=== PATIENT | male | born 1995 | race American Indian/Alaskan Native ===

== ENCOUNTER 2020-07-22 23:07 | Emergency (ER) | payer SELFPAY ==
--- NOTE | 2020-07-23 00:15 | Event Note ---
ED Screening Note Date of service: 07/23/20 Time: 00:08 ED Screening Note: 24-year-old -Mongolian male presents to the emergency room reporting that he is hearing voices and suicidal ideations. Patient states he had a plan to jump in front of a car. Patient states he has had a history of mental illness but never been on medication as his family did not approve of meds. Patient states he would like help and would like to be placed on medications to help make him feel better. Patient states he has had the symptoms for about a year but is gotten worse tonight. Patient states he recently relocated from [place] about 2 months ago. Patient is homeless. This initial assessment/diagnostic orders/clinical plan/treatment(s) is/are subject to change based on patients health status, clinical progression and re- assessment by fellow clinical providers in the ED. Further treatment and workup at subsequent clinical providers discretion. Patient/guardian urged not to elope from the ED as their condition may be serious if not clinically assessed and managed. Initial orders include:
--- NOTE | 2020-07-23 00:35 | Emergency Department Report ---
ED Psych HPI - General Chief Complaint: Psych Stated Complaint: SUICIDAL THOUGHTS Time Seen by Provider: 07/23/20 00:27 Source: patient Mode of arrival: Ambulatory - History of Present Illness Initial Comments: 24-year-old male with history of bipolar disorder presents to the ED with complaint of suicidal ideations and auditory hallucinations. Patient states he also has some associated paranoia, thinking that everyone is talking about him behind his back. Patient is not comfortable revealing what the voices are saying to him. Patient states his plan for suicide is to get drunk and jump in front of a car. Patient states previous psychotic episode was secondary to cocaine use, so his family was against him using medication to improve his symptoms. Therefore, patient has not been compliant with any psychiatric medications. Patient states he is no longer using cocaine, but still hearing voices. Patient reports suicide attempt last year when he tried to hang himself in a hotel room but was unsuccessful. MD Complaint: suicidal ideation -: unknown Associated Psychiatric Symptoms: suicidal ideation, auditory hallucinations History of same: Yes Quality: constant Improves With: none Worsens With: none Context: not taking psychiatric Associated Symptoms: denies other symptoms If Self Harm: has plan (Jump in front of traffic) - Related Data Home Medications Medication Instructions Recorded Confirmed Last Taken Bupropion HCl [Wellbutrin XL] 300 mg PO QAM 07/23/20 07/23/20 Unknown OLANZapine [Zyprexa] 15 mg PO DAILY 07/23/20 07/23/20 Unknown OXcarbazepine [Trileptal] 150 mg PO BID 07/23/20 07/23/20 Unknown Allergies Allergy/AdvReac Type Severity Reaction Status Date / Time No Known Allergies Allergy Unverified 07/23/20 00:08 ED Review of Systems ROS: Stated complaint: SUICIDAL THOUGHTS Other details as noted in HPI Comment: All other systems reviewed and negative Psychiatric: auditory hallucinations, suicidal thoughts. denies: visual hallucinations, homicidal thoughts ED Past Medical Hx - Past Medical History Hx Asthma: Yes - Surgical History Past Surgical History?: Yes Additional Surgical History: left acl surgery - Social History Smoking Status: Never Smoker Substance Use Type: Marijuana - Medications Home Medications: Home Medications Medication Instructions Recorded Confirmed Last Taken Type Bupropion HCl [Wellbutrin XL] 300 mg PO QAM 07/23/20 07/23/20 Unknown History OLANZapine [Zyprexa] 15 mg PO DAILY 07/23/20 07/23/20 Unknown History OXcarbazepine [Trileptal] 150 mg PO BID 07/23/20 07/23/20 Unknown History ED Physical Exam - General Limitations: No Limitations General appearance: alert, in no apparent distress - Head Head exam: Present: atraumatic, normocephalic - Eye Eye exam: Present: normal appearance, EOMI - ENT ENT exam: Present: mucous membranes moist - Neck Neck exam: Present: normal inspection - Respiratory Respiratory exam: Present: normal lung sounds bilaterally. Absent: respiratory distress - Cardiovascular Cardiovascular Exam: Present: regular rate, normal rhythm - GI/Abdominal GI/Abdominal exam: Absent: distended - Extremities Exam Extremities exam: Present: normal inspection - Neurological Exam Neurological exam: Present: alert, oriented X3 - Psychiatric Psychiatric exam: Present: suicidal ideation - Skin Skin exam: Present: warm, dry, intact, normal color ED Course Vital Signs 07/23/20 07/23/20 07/23/20 00:09 08:56 09:08 Temperature 98.1 F 97.9 F Pulse Rate 87 72 Respiratory 12 20 18 Rate Blood Pressure 108/66 115/63 [left arm] O2 Sat by Pulse 94 98 98 Oximetry 07/23/20 07/23/20 07/23/20 12:38 15:20 20:16 Temperature 97.5 F L 98.4 F Pulse Rate 71 76 73 Respiratory 18 18 16 Rate Blood Pressure 102/60 112/65 120/61 [left arm] O2 Sat by Pulse 97 100 99 Oximetry 07/24/20 07/24/20 08:34 16:50 Temperature 97.5 F L 97.4 F L Pulse Rate 53 L 83 Respiratory 18 18 Rate Blood Pressure 114/62 110/70 [left arm] O2 Sat by Pulse 99 99 Oximetry ED Medical Decision Making - Lab Data Result diagrams: 07/23/20 00:31 07/23/20 00:31 - Medical Decision Making 24-year-old male presents to ED with auditory hallucinations and suicidal ideations. Patient states his plan is to jump in front of a moving car in traffic. Patient has been placed on 1013. Vital signs are stable. Labs are unremarkable. Patient is medically clear for mental health evaluation. Will dispo per psych. Critical care attestation.: If time is entered above; I have spent that time in minutes in the direct care of this critically ill patient, excluding procedure time. ED Disposition Clinical Impression: Suicidal ideation, Acute psychosis Disposition: DC/TX-65 PSY HOSP/PSY UNIT Is pt being admited?: No Condition: Stable Referrals: PRIMARY CARE, [Primary Care Provider] - 3-5 Days
[2020-07-23 01:20] LABS: Basophils % (Auto) 0.6 % (0.0-1.8); Eosinophils # (Auto) 0.1 K/mm3 (0.0-0.4); Eosinophils % (Auto) 2.4 % (0.0-4.3); Hemoglobin 15.5 gm/dl (11.8-15.2); Lymphocytes # (Auto) 3.1 K/mm3 (1.2-5.4); Lymphocytes % (Auto) 53.3 % (13.4-35.0); Mean Corpuscular HGB Conc 34 % (32-34); Mean Corpuscular Volume 94 fl (84-94); Monocytes # (Auto) 0.4 K/mm3 (0.0-0.8); Monocytes % (Auto) 7.4 % (0.0-7.3); Platelet Count 281 K/mm3 (140-440); Red Blood Count 4.87 M/mm3 (3.65-5.03); Red Cell Distribution Width 12.8 % (13.2-15.2)
[2020-07-23 01:23] LABS: Amphetamine Screen,Urine PRESUMPTIVE NEGATIVE; Benzodiazepines Screen,Urine PRESUMPTIVE NEGATIVE; Cannabinoid Screen,Urine PRESUMPTIVE POSITIVE; Cocaine Screen,Urine PRESUMPTIVE NEGATIVE; Methadone Screen,Urine PRESUMPTIVE NEGATIVE; Opiate Screen,Urine PRESUMPTIVE NEGATIVE
[2020-07-23 01:24] LABS: Bilirubin,Urine NEG (Negative); Blood,Urine NEG (Negative); Color,Urine Yellow (Yellow); Mucus,Urine FEW /HPF; Protein,Urine <15 mg/dL mg/dL (Negative); Urobilinogen,Urine < 2.0 mg/dL (<2.0)
[2020-07-23 01:34] LABS: Alanine Aminotransferase 44 units/L (7-56); Albumin 4.7 g/dL (3.9-5); BUN/Creatinine Ratio 16; Blood Urea Nitrogen 18 mg/dL (9-20); Calcium 9.7 mg/dL (8.4-10.2); Hemolysis Index 8
[2020-07-23] MEDS ORDERED: NICOTINE 21 MG/24 HR PATCH TD ONE (07:15)
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
[2020-07-23] MEDS: OXcarbazepine 150 MG TAB PO SCH (13:28)
[2020-07-23] MEDS: VALPROIC ACID 250 MG CAP PO SCH ×2 (13:28→21:53)
[2020-07-24] MEDS ORDERED: NICOTINE 21 MG/24 HR PATCH TD ONE (11:26)
[2020-07-24] MEDS: OXcarbazepine 150 MG TAB PO SCH (11:37)
[2020-07-24] MEDS: VALPROIC ACID 250 MG CAP PO SCH (11:37)
[2020-07-24] MEDS ORDERED: buPROPion XL 150 MG TAB PO SCH (12:00)
[2020-07-24 16:50] VITALS: BP 110/70
[2020-07-25] MEDS ORDERED: NON-FORMULARY EACH (Bupropion Hcl [Wellbutrin Xl] 300 MG Tab.Er.24h) PO SCH (10:00)
== END 2020-07-24 17:23 ==
LOC: ED 23:07
DX: F23 Brief psychotic disorder (principal); J45.909 Unspecified asthma, uncomplicated; F12.10 Cannabis abuse, uncomplicated; Z79.899 Other long term (current) drug therapy; Z20.822 Contact with and (suspected) exposure to COVID-19
CPT/HCPCS: 36415; 80053; 80307; 81001; 85025; 99285; U0003; 80320; G0480

== ENCOUNTER 2020-07-31 03:26 | Emergency (ER) | payer SELFPAY ==
[2020-07-31] MEDS ORDERED: SODIUM CHLORIDE 0.9% 1000 ML 1,000 ML IV ONE (08:05)
[2020-07-31] MEDS ORDERED: diphenhydrAMINE 50 MG/ML VIAL IV STA (08:05)
[2020-07-31] MEDS ORDERED: METOCLOPRAMIDE 10 MG/2 ML INJ IV STA (08:05)
[2020-07-31] MEDS ORDERED: ONDANSETRON 4 MG/2 ML INJ IV STA (08:05)
[2020-07-31] MEDS ORDERED: KETOROLAC 30 MG/1 ML INJ IV STA (08:05)
--- NOTE | 2020-07-31 08:12 | Emergency Department Report ---
ED Headache HPI - General Chief Complaint: Headache Stated Complaint: WEAKNESS Time Seen by Provider: 07/31/20 07:59 Source: patient Exam Limitations: no limitations - History of Present Illness Initial Comments: 24-year-old -Faroese male that emerge department complaining of a couple day history of progressively worsening dull throbbing headache associated with nausea, vomiting and also occasional blurred vision and presyncope. States that the headache started on each side and began to take a more global affect now with more dull and throbbing. Has not tried any [id number] treatments but did note that he was started some Wellbutrin prior to the symptoms beginning. He was prescribed medication about a week ago and reports has been having the symptoms that has been worsening since the onset. He also has been experiencing some vague abdominal pain centrally located associated with diarrhea and pain as well. Feels like he is dehydrated due to the excessive vomiting and and diarrhea. Reports no chest pain, no palpitations, no fever but has had chills and sweats. He was tested for Covid 1 week ago and states it was negative. Reports no known sick contacts since that time. Timing/Duration: increasing Quality: moderate Recent Head Trauma: occasional headaches Modifying Factors: improves with: medication (Wellbutrin may worsen symptoms) Associated Symptoms: vision changes. denies: facial pain, flushing, nasal drainage, numbness in legs/feet, seizures, sinus infection Allergies/Adverse Reactions: Allergies No Known Allergies Allergy (Unverified 07/23/20 00:08) Home Medications: Ambulatory Orders Bupropion HCl [Wellbutrin XL] 300 mg PO QAM 07/23/20 OLANZapine [Zyprexa] 15 mg PO DAILY 07/23/20 OXcarbazepine [Trileptal] 150 mg PO BID 07/23/20 Butalb/Acetaminophen/Caffeine [Fioricet 50-300-40 mg CAP] 1 cap PO Q6HR PRN #10 cap 07/31/20 Ondansetron [Zofran Odt] 4 mg PO Q8HR #14 tab.rapdis 07/31/20 ED Review of Systems ROS: Stated complaint: WEAKNESS Other details as noted in HPI Constitutional: denies: chills, fever Eyes: denies: eye pain, eye discharge, vision change ENT: denies: ear pain, throat pain Respiratory: denies: cough, shortness of breath, wheezing Cardiovascular: denies: chest pain, palpitations Endocrine: no symptoms reported Gastrointestinal: abdominal pain, nausea, vomiting, diarrhea Genitourinary: denies: urgency, dysuria Musculoskeletal: denies: back pain, joint swelling, arthralgia Skin: denies: rash, lesions Neurological: denies: headache, weakness, paresthesias Psychiatric: denies: anxiety, depression Hematological/Lymphatic: denies: easy bleeding, easy bruising ED Past Medical Hx - Past Medical History Previous Medical History?: Yes Hx Psychiatric Treatment: Yes (PTSD, Anxiety Bipolar) Hx Asthma: Yes - Surgical History Past Surgical History?: Yes Additional Surgical History: left acl surgery - Social History Smoking Status: Current Every Day Smoker Substance Use Type: Marijuana - Medications Home Medications: Home Medications Medication Instructions Recorded Confirmed Last Taken Type Bupropion HCl [Wellbutrin XL] 300 mg PO QAM 07/23/20 07/23/20 Unknown History OLANZapine [Zyprexa] 15 mg PO DAILY 07/23/20 07/23/20 Unknown History OXcarbazepine [Trileptal] 150 mg PO BID 07/23/20 07/23/20 Unknown History Butalb/Acetaminophen/Caffeine 1 cap PO Q6HR PRN #10 cap 07/31/20 Unknown Rx [Fioricet 50-300-40 mg CAP] Ondansetron [Zofran Odt] 4 mg PO Q8HR #14 tab.rapdis 07/31/20 Unknown Rx ED Physical Exam - General Limitations: No Limitations General appearance: alert, in no apparent distress - Head Head exam: Present: atraumatic, normocephalic - Eye Eye exam: Present: normal appearance, PERRL, EOMI Pupils: Present: normal accommodation - ENT ENT exam: Present: normal exam, normal orophraynx, mucous membranes moist, TM's normal bilaterally - Neck Neck exam: Present: normal inspection, full ROM - Respiratory Respiratory exam: Present: normal lung sounds bilaterally. Absent: respiratory distress - Cardiovascular Cardiovascular Exam: Present: regular rate, normal rhythm. Absent: systolic murmur, diastolic murmur, rubs, gallop - GI/Abdominal GI/Abdominal exam: Present: soft, normal bowel sounds - Rectal Rectal exam: Present: deferred - Extremities Exam Extremities exam: Present: normal inspection - Back Exam Back exam: Present: normal inspection - Neurological Exam Neurological exam: Present: alert, oriented X3, CN II-XII intact, normal gait - Expanded Neurological Exam Expanded Patient oriented to: Present: person, place, time Speech: Present: fluid speech Cranial nerves: EOM's Intact: Normal, Tongue Deviation: Normal, Nystagmus: Normal, Facial Palsy with Forehead Movement: Normal, Facial Palsy without Forehead Movement: Normal Ataxia: Absent: yes Cerebellar function: Finger to Nose: Normal Upper motor neuron: Peng Neglect: Normal, Babinski Sign: Normal Motor strength exam: RUE: 5, LUE: 5, RLE: 5, LLE: 5 Best Eye Response (Micaela): (4) open spontaneously Best Motor Response (Micaela): (6) obeys commands Best Verbal Response (Micaela): (5) oriented Micaela Total: 15 - Psychiatric Psychiatric exam: Present: normal affect, normal mood - Skin Skin exam: Present: warm, dry, intact, normal color. Absent: rash ED Course Vital Signs 07/31/20 07/31/20 07/31/20 03:55 08:00 08:36 Temperature 98.3 F 97.8 F Pulse Rate 82 72 Respiratory 18 16 16 Rate Blood Pressure 118/69 Blood Pressure 125/78 [Right] O2 Sat by Pulse 99 98 Oximetry ED Medical Decision Making - Lab Data Result diagrams: 07/31/20 08:20 07/31/20 08:20 - Radiology Data Radiology results: report reviewed SARA Bautista [id number] Cat Scan Report Signed Patient: RANJIT LOVETT MR#: [id number] 31 : 1995 Acct:[id number] Age/Sex: 24 / M ADM Date: 07/31/20 Loc: ED Attending Dr: Ordering Physician: VADIM TURNER Date of Service: 07/31/20 Procedure(s): CT head/brain wo con Accession Number(s): [id number] cc: VADIM TURNER CT HEAD WITHOUT CONTRAST INDICATION / CLINICAL INFORMATION: Headache x2days. TECHNIQUE: All CT scans at this location are performed using CT dose reduction for ALARA by means of automated exposure control. COMPARISON: None available. FINDINGS: BRAIN PARENCHYMA: No acute intracranial hemorrhage. No evidence of recent infarct. No mass effect or midline shift. VENTRICULAR SYSTEM/EXTRA-AXIAL SPACES: Ventricles are normal for age. No extra- axial fluid collection. ORBITS: Normal as visualized. SKELETAL SYSTEM/SOFT TISSUES: Normal bones and soft tissues. PARANASAL SINUSES/MASTOID AIR CELLS: No significant abnormality. ADDITIONAL FINDINGS: None. IMPRESSION: 1. No acute intracranial abnormality. Signer Name: Taqueria Yanze MD Signed: 07/31/2020 8:36 AM Workstation Name: [id number] Transcribed By: CAROLE Dictated By: TAQUERIA YANEZ MD Electronically Authenticated By: TAQUERIA YANEZ MD Signed Date/Time: 07/31/20 0836 - Medical Decision Making 1. Headache This patient presents with a headache most consistent with a general headache. Differential diagnosis includes migraine versus tension type headache. No headache red flags. Neurologic exam without evidence of meningismus, focal neurologic findings.Based on the patient's history and physical there is very low clinical suspicion for significant intracranial pathology. The headache was NOT sudden onset, NOT maximal at onset, there are NO neurologic findings, the patient does NOT have a fever, the patient does NOT have any jaw claudication, the patient does NOT endorse a clotting disorder, patient DENIES any trauma or eye pain and the headache is NOT associated with dizziness or ataxia. Presentation not consistent with acute intracranial bleed to include SAH (lack of risk factors, headache history). Presentation not consistent with acute [employer] infection to include meningitis or brain abscess, Temporal arteritis unlikely, as is acute angle closure glaucoma given history and physical findings. Presentation not consistent with other acute, emergent causes of headache at this time. Plan to treat symptomatically with pain medication. No indication for imaging/LP at this time. Plan: pain medication, CT brain normal, serial reassessment 2. N/V Patient presents to the emergency department with nausea, vomiting, diarrhea, differential diagnosis includes possible acute gastroenteritis. Abdominal examination without peritoneal signs. Currently patient is euvolemic without evidence of dehydration. No evidence of surgical abdomen or other acute medical emergency including bowel obstruction, viscus perforation, vascular catastrophe, appendicitis, cholecystitis at this time. Presentation not consistent with other acute emergent causes of vomiting and diarrhea at this time. No indication for abdominal imaging Plan supportive care, oral/IV rehydration, antiemetics and reassess Critical care attestation.: If time is entered above; I have spent that time in minutes in the direct care of this critically ill patient, excluding procedure time. ED Disposition Clinical Impression: Cephalgia, N&V (nausea and vomiting), Adverse reaction to antidepressant drug Disposition: DC-01 TO HOME OR SELFCARE Is pt being admited?: No Does the pt Need Aspirin: No Condition: Stable Instructions: Nausea and Vomiting, Adult, [id number], Nausea and Vomiting, Adult, General Headache Without Cause Additional Instructions: Please be sure to follow-up with your primary care provider to evaluate likely adjusting your antidepressant medication as it may be the culprit to your symptoms today. May return to the emergency department should you feel that y our condition is worsening did not stop taking the medication until consulting with your physician Prescriptions: Butalb/Acetaminophen/Caffeine [Fioricet 50-300-40 mg CAP] 1 cap PO Q6HR PRN #10 cap PRN Reason: headache Ondansetron [Zofran Odt] 4 mg PO Q8HR #14 tab.rapdis Referrals: [facility] MD JOHNATHON [Primary Care Provider] - 3-5 Days GALINDO SHARMA MD [Staff Physician] - 3-5 Days
[2020-07-31 08:39] LABS: Basophils % (Auto) 0.4 % (0.0-1.8); Eosinophils # (Auto) 0.1 K/mm3 (0.0-0.4); Eosinophils % (Auto) 2.9 % (0.0-4.3); Hematocrit 46.2 % (35.5-45.6); Hemoglobin 15.8 gm/dl (11.8-15.2); Lymphocytes # (Auto) 1.4 K/mm3 (1.2-5.4); Lymphocytes % (Auto) 28.5 % (13.4-35.0); Mean Corpuscular HGB Conc 34 % (32-34); Mean Corpuscular Volume 94 fl (84-94); Monocytes # (Auto) 0.4 K/mm3 (0.0-0.8); Monocytes % (Auto) 8.8 % (0.0-7.3); Platelet Count 265 K/mm3 (140-440); Red Blood Count 4.93 M/mm3 (3.65-5.03); Red Cell Distribution Width 13.1 % (13.2-15.2)
--- NOTE | 2020-07-31 08:40 | Cat Scan Report ---
CT HEAD WITHOUT CONTRAST INDICATION / CLINICAL INFORMATION: Headache x2days. TECHNIQUE: All CT scans at this location are performed using CT dose reduction for ALARA by means of automated exposure control. COMPARISON: None available. FINDINGS: BRAIN PARENCHYMA: No acute intracranial hemorrhage. No evidence of recent infarct. No mass effect or midline shift. VENTRICULAR SYSTEM/EXTRA-AXIAL SPACES: Ventricles are normal for age. No extra-axial fluid collection . ORBITS: Normal as visualized. SKELETAL SYSTEM/SOFT TISSUES: Normal bones and soft tissues. PARANASAL SINUSES/MASTOID AIR CELLS: No significant abnormality. ADDITIONAL FINDINGS: None. IMPRESSION: 1. No acute intracranial abnormality. Signer Name: Troy Yanez MD Signed: 07/31/2020 8:36 AM Workstation Name: [id number]
[2020-07-31 08:48] LABS: Bilirubin,Urine NEG (Negative); Blood,Urine NEG (Negative); Color,Urine Yellow (Yellow); Protein,Urine <15 mg/dL mg/dL (Negative); Urobilinogen,Urine < 2.0 mg/dL (<2.0); WBC,Urine < 1.0 /HPF (0.0-6.0)
[2020-07-31 08:51] LABS: Alanine Aminotransferase 33 units/L (7-56); Albumin 4.7 g/dL (3.9-5); BUN/Creatinine Ratio 9; Blood Urea Nitrogen 11 mg/dL (9-20); Calcium 9.2 mg/dL (8.4-10.2); Hemolysis Index 3
[2020-07-31 10:11] VITALS: BP 124/72
== END 2020-07-31 10:10 | disposition home or self-care (01) ==
LOC: ED 03:26
DX: R51.9 Headache, unspecified (principal); R11.2 Nausea with vomiting, unspecified; T43.205A Adverse effect of unspecified antidepressants, initial encounter; F41.9 Anxiety disorder, unspecified; F31.9 Bipolar disorder, unspecified; F17.200 Nicotine dependence, unspecified, uncomplicated; F12.10 Cannabis abuse, uncomplicated; Z79.899 Other long term (current) drug therapy
CPT/HCPCS: 36415; 70450; 80053; 81001; 83690; 85025; 96361; 96374; 96375; 99284; J1200; J1885; J2405; J2765; J7030